=== PATIENT | female | born 1945 | race Two or more races ===

== ENCOUNTER 2019-03-17 09:00 | Outpatient (CLI) | payer OTHER | END 2019-03-17 09:18 | disposition home or self-care (01) | LOC: MAMO-SONO 09:00 → NUCLEAR 09:00 | DX: M54.5 Low back pain (principal); E78.89 Other lipoprotein metabolism disorders; M81.0 Age-related osteoporosis without current pathological fracture; E55.9 Vitamin D deficiency, unspecified; E03.8 Other specified hypothyroidism; M89.8X8 Other specified disorders of bone, other site; E11.51 Type 2 diabetes mellitus with diabetic peripheral angiopathy without gangrene; E11.9 Type 2 diabetes mellitus without complications; G62.89 Other specified polyneuropathies; K21.9 Gastro-esophageal reflux disease without esophagitis; E11.42 Type 2 diabetes mellitus with diabetic polyneuropathy; F41.8 Other specified anxiety disorders; M54.14 Radiculopathy, thoracic region ==

== ENCOUNTER 2021-09-01 12:45 | Outpatient (CLI) | payer OTHER | END 2021-09-01 13:00 | disposition home or self-care (01) | LOC: NUCLEAR 12:45 | PROVIDERS: ATTEND Internal Medicine | DX: M54.59 Other low back pain (principal); E78.9 Disorder of lipoprotein metabolism, unspecified; E55.9 Vitamin D deficiency, unspecified; M89.9 Disorder of bone, unspecified; M54.14 Radiculopathy, thoracic region ==